=== PATIENT | female | born 1960 | race Caucasian/White ===

== ENCOUNTER 2018-04-02 19:06 | Emergency (ER) | payer OTHER ==
[~2018-04-02] VITALS: Ht 167.6 cm; Wt 134.7 kg
--- OUTSIDE RECORDS SUMMARY | 2018-04-11 11:49 | XMS REPORT ---
Author Author [facility] Address Unknown Phone Unavailable Care Team Providers Care Retail Center Receptionist Name Role Phone YAKOV JOSHUA Unavailable Unavailable Problems This patient has no known problems. Allergies, Adverse Reactions, Alerts This patient has no known allergies or adverse reactions. Medications This patient has no known medications. Results Test Description Test Time Test Comments Text Results Atomic Results Result Comments MAURO KEARNS IN OR/30 MINUTE INCREMENTS 2017-08-19 08:39:00 Reason for exam:->hammertoe release FINAL REPORT INDICATION: Hammertoe release. COMPARISON: None available. IMPRESSION: 2 fluoroscopic images obtained during a surgical procedure performed by another physician (NOT the undersigned radiologist) were provided for postprocedural interpretation. Intraoperative consultation with the radiologist was not requested. There has been second toe surgery with a surgical tract traversing the distal phalanx and a screw in the proximal and middle phalanges traversing the proximal interphalangeal joint. Fluoroscopy was not performed by the undersigned radiologist. Provided fluoroscopy time: 14 seconds, 2 images Signed: Juan Antonio Garciaepmil Verified Date/Time: 08/19/2017 08:39:59 Reading Location: [facility] Radiology Reading Room TROLYTES 2017-08-05 14:38:00 SODIUM (BEAKER) (test wqma=805) 136 meq/L 136-145 POTASSIUM (BEAKER) (test bzcc=470) 4.2 meq/L 3.5-5.1 CHLORIDE (BEAKER) (test frco=540) 101 meq/L 98-107 CO2 (BEAKER) (test qshi=024) 25 meq/L 22-29 BUN AND [id number] 14:38:00* Test Item Value Reference Range Comments BLOOD UREA NITROGEN (BEAKER) (test vhjb=832) 18 mg/dL 7-21 CREATININE (BEAKER) (test anhe=965) 1.04 mg/dL 0.57-1.25 EGFR (MIKE) (test jhvp=2428) 55 mL/min/1.73 sq m ESTIMATED GFR IS NOT ACCURATE CREATININE CLEARANCE IN PREDICTING GLOMERULAR FILTRATION RATE. ESTIMATED GFR IS NOT APPLICABLE FOR DIALYSIS PATIENTS. [id number] 14:16:00* Test Item Value Reference Range Comments HEMOGLOBIN (MIKE) (test kwwm=138) 13.0 GM/DL 11.2-15.7 FL, FIRMWARE DEVELOPER IN OR/30 MINUTE [id number] 12:59:00Reason for exam:-> surgeryReason for exam:->min c-armFLUOROSCOPIC UNIT UTILIZED-NO INTERPRETATION REQUESTED.
--- OUTSIDE RECORDS SUMMARY | 2018-04-11 11:49 | XMS REPORT | Clinical Summary ---
Author Author [facility] Address Unknown Phone Unavailable Care Team Providers Care Mammal Keeper Name Role Phone PCP Unavailable Allergies Active Allergy Reactions Severity Noted Date Comments Fexofenadine 02/16/2017 palpitations Clindamycin Hives 02/16/2017 Penicillins Hives 02/16/2017 Nifedipine Hives 02/16/2017 Shellfish Containing Hives 02/16/2017 Products Current Medications Prescription Sig. Disp. Refills Start End Date Status Date fluticasone-salmeterol Inhale 1 puff by mouth Active (ADVAIR) 250-50 mcg/dose via inhaler every 12 diskus inhaler (twelve) hours. albuterol HFA (VENTOLIN Inhale 2 puffs by mouth Active HFA) 90 mcg/actuation via inhaler every 6 (six) inhaler hours as needed for Wheezing . esomeprazole (NEXIUM) 40 Take 40 mg by mouth Active MG capsule daily. folic acid (FOLVITE) 400 Take 400 mcg by mouth Active MCG tablet daily. levothyroxine (SYNTHROID, Take 125 mcg by mouth Active LEVOTHROID) 125 MCG Every morning on an empty tablet stomach. potassium chloride Take 10 mEq by mouth 2 Active (KLOR-CON) 10 MEQ CR (two) times daily. tablet ranitidine (ZANTAC) 300 Take 300 mg by mouth Active MG tablet nightly. valsartan (DIOVAN) 160 MG Take 160 mg by mouth Active tablet daily. HYDROcodone-acetaminophen Take 1-2 tablets by mouth 60 tablet 0 02/26/20 Active (NORCO 5-325) 5-325 mg every 4 (four) hours as 17 per tablet needed for Pain. Max Daily Amount: 12 tablets aspirin 81 MG EC tablet Take 81 mg by mouth Active daily. azelastine (ASTELIN) 137 1 spray by Nasal route 2 Active mcg (0.1 %) nasal spray (two) times daily Use in each nostril as directed . diclofenac 1 % Gel Apply 2 g topically 3 Active (three) times daily. dicyclomine (BENTYL) 10 Take 10 mg by mouth 2 Active MG capsule (two) times daily as needed. fluticasone (FLONASE) 50 2 sprays by Nasal route 2 Active mcg/actuation nasal spray (two) times daily as needed for Rhinitis. gabapentin (NEURONTIN) Take 600 mg by mouth 3 Active 600 MG tablet (three) times daily. meclizine (ANTIVERT) 25 Take 25 mg by mouth 3 Active MG tablet (three) times daily as needed. montelukast (SINGULAIR) Take 10 mg by mouth Active 10 mg tablet daily. multivitamin per tablet Take 1 tablet by mouth Active daily. lactobacillus rhamnosus, Take 1 capsule by mouth Active GG, (CULTURELLE) 10 daily. billion cell capsule psyllium (METAMUCIL Take 1 packet by mouth Active SUGAR-FREE) 3.4 gram daily. packet spironolactone Take 50 mg by mouth 2 Active (ALDACTONE) 50 MG tablet (two) times daily. cholecalciferol, vitamin Take 5,000 Units by mouth Active D3, 5,000 unit Tab daily. HYDROcodone-homatropine Take by mouth 4 (four) Active (HYCODAN) 5-1.5 mg/5 mL times daily as needed. syrup Active Problems Problem Noted Date Acquired hammer toe of left foot 08/19/2017 Hammer toe of right foot 02/25/2017 Encounters Date Type Specialty Care Team Description 08/19/2017 Hospital Panfilo Palacios, Ranjan OLIVEIRA 08/19/2017 Procedure Pass 08/19/2017 Surgery Panfilo Palacios, VALERIA MILLER MD 08/05/2017 Hospital Pre-Admission Testing Panfilo Palacios, Ranjan OLIVEIRA 08/05/2017 Anesthesia Rodrigue Ball MD Event after 04/01/2017 Social History Tobacco Use Types Packs/Day Years Used Date Never Smoker Smokeless Tobacco: Never Used Alcohol Use Drinks/Week oz/Week Comments No Sex Assigned at Date Recorded Not on file Last Filed Vital Signs Vital Sign Reading Time Taken Blood Pressure 132/63 08/19/2017 11:50 AM ADVANCED DEVELOPER Pulse 66 08/19/2017 11:50 AM ADVANCED DEVELOPER Temperature 36.6 C (97.9 F) 08/19/2017 11:50 AM ADVANCED DEVELOPER Respiratory Rate 18 08/19/2017 11:50 AM ADVANCED DEVELOPER Oxygen Saturation 98% 08/19/2017 11:50 AM ADVANCED DEVELOPER Inhaled Oxygen - - Concentration Weight 139 kg (306 lb 6.3 oz) 08/19/2017 6:20 AM ADVANCED DEVELOPER Height 167.6 cm (5' 5.98") 08/19/2017 6:20 AM ADVANCED DEVELOPER Body Mass Index 49.48 08/19/2017 6:20 AM ADVANCED DEVELOPER Plan of Treatment Not on file Implants Implanted Type Area Sales Management Trainee Device Expiration Model / Identifier Date Serial / Lot Scr Comp Ft Micro 2.5x30mm Fracture/F Right: ARTHREX [id number] - [id number] ixation Foot H / Implanted: Qty: 1 on 02/25/2017 by / Panfilo Palacios MD Scr Comp Ft Mini 3.5x28mm Fracture/F Left: Toe ARTHREX [id number] - [id number] ixation H / Implanted: Qty: 1 on 08/19/2017 by / Panfilo Palacios MD [id number] Procedures Procedure Name Priority Date/Time Associated Diagnosis Comments PROCEDURE W/ C-ARM 08/19/2017 Acquired hammer toe of 7:30 AM ADVANCED DEVELOPER left foot Special Needs (MINI C-ARM, ARTHREX HEADLESS COMPRESSIO N SCREW) RELEASE,HAMMERTOE 08/19/2017 Acquired hammer toe of 7:30 AM ADVANCED DEVELOPER left foot Special Needs (MINI C-ARM, ARTHREX HEADLESS COMPRESSIO N SCREW) after 04/01/2017 Results * RHYTHM STRIP - SCAN (08/22/2017 11:12 AM) * [place] radio engineer in or 30 minute increments (08/19/2017 8:12 AM) Specimen Performing Laboratory GE RIS Narrative FINAL REPORT INDICATION: Hammertoe release. COMPARISON: None [...] 14 seconds, 2 images Signed: Juan Antonio Garcia MD Report Verified Date/Time:08/19/2017 08:39:59 Reading Location: [facility] Radiology Reading Room Procedure Note Interface, External Ris In - 08/19/2017 8:55 AM ADVANCED DEVELOPER FINAL REPORT INDICATION: Hammertoe release. COMPARISON: None [...] 14 seconds, 2 images Signed: Juan Antonio Garcia MD Report Verified Date/Time: 08/19/2017 08:39:59 Reading Location: [facility] Radiology Reading Room * BUN and Creatinine (08/05/2017 12:24 PM) Component Value Ref Range BUN 18 7 - 21 mg/dL Creatinine 1.04 0.57 - 1.25 mg/dL EGFR 55Comment: ESTIMATED GFR IS NOT ACCURATE mL/min/1.73 sq m CREATININE CLEARANCE IN PREDICTING GLOMERULAR FILTRATION RATE. ESTIMATED GFR IS NOT APPLICABLE FOR DIALYSIS PATIENTS. Specimen Performing Laboratory Blood [address] [address] * Hemoglobin (08/05/2017 12:24 PM) Component Value Ref Range Hemoglobin 13.0 11.2 - 15.7 GM/DL Specimen Performing Laboratory Blood [address] [address] * Electrolytes (08/05/2017 12:24 PM) Component Value Ref Range Sodium 136 136 - 145 meq/L Potassium 4.2 3.5 - 5.1 meq/L Chloride 101 98 - 107 meq/L CO2 25 22 - 29 meq/L Specimen Performing Laboratory Blood [facility] [address] [place] [address] after 04/01/2017
== END 2018-04-02 19:40 | disposition home or self-care (01) ==
LOC: FSED 19:06
DX: S61.011A Laceration without foreign body of right thumb without damage to nail, initial encounter (principal); W26.8XXA Contact with other sharp object(s), not elsewhere classified, initial encounter; Y92.008 Other place in unspecified non-institutional (private) residence as the place of occurrence of the external cause; I10 Essential (primary) hypertension; E87.6 Hypokalemia
CPT/HCPCS: 99284